=== PATIENT | male | born 2000 | race Caucasian/White ===

== ENCOUNTER 2022-04-20 19:34 | Emergency (ER) | payer SELFPAY ==
[~2022-04-20] VITALS: Ht 182.9 cm; Wt 72.7 kg
[2022-04-20 19:42] VITALS: BP 119/59; PULSE 74; TEMP 99
== END 2022-04-20 21:01 | disposition home or self-care (01) ==
LOC: COL.ER 19:34
DX: S62.321A Displaced fracture of shaft of second metacarpal bone, left hand, initial encounter for closed fracture (principal); S62.323A Displaced fracture of shaft of third metacarpal bone, left hand, initial encounter for closed fracture; S62.325A Displaced fracture of shaft of fourth metacarpal bone, left hand, initial encounter for closed fracture; Z28.310 Unvaccinated for COVID-19; W18.30XA Fall on same level, unspecified, initial encounter; Y92.310 Basketball court as the place of occurrence of the external cause; Y93.67 Activity, basketball